=== PATIENT | female | born 1980 | race African-American/Black ===

== ENCOUNTER 2016-06-19 18:48 | Emergency (ER) | payer OTHER ==
[2016-06-19 18:54] VITALS: BP 120/75; BMI 33.6
[2016-06-19] MEDS ORDERED: ADACEL TDaP IM ONE (19:05)
[2016-06-19] MEDS ORDERED: BETADINE SOLN TOP ONE (19:05)
[2016-06-19] MEDS ORDERED: XYLOCAINE 1 % (PLAIN) IM ONE (19:05)
[2016-06-19] MEDS ORDERED: KEFLEX CAP 500 MG PO ONE ×2 (19:48→19:52)
[2016-06-19] MEDS ORDERED: MOTRIN TAB 600 MG PO ONE ×2 (19:49→19:52)
--- NOTE | 2016-06-19 19:52 | DR.LACERAT ---
HPI - Time Seen Time seen: 19:48 - Primary Care Physician Primary Care Physician: jade - HPI Comment HPI Comment: PATIENT CUT HER 5TH FINGER WITH A KNIFE WHEN SHE WAS CUTTING THE MEAT AT HOME. TD NOT UTD. - Complaints Chief Complaint Doctors Comments: LACERATION LT 5TH FINGER. Chief Complaint:: LEFT HAND, 5TH DIGIT LACERATION CUTTING MEAT AT HOME. - Reviewed Nurses Notes Reviewed: Yes - Source History Provided: Patient - Mode of Arrival Mode of Arrival: Ambulatory - Timing Onset of Chief Complaint: 06/19/16 - Context Mechanism: Knife Tetanus Vaccination: No - Severity Pain Severity: Moderate Bleeding:: Controlled - Associated Signs and Symptoms Associated Signs and Symptoms: None PMH - PMH Past Medical History: No Past Surgical History: No - Family History History of Family Medical Conditions: Yes Family Medical History: Diabetes Mellitus, Hypertension - Social History Type of Tobacco Use: None Does any household member use tobacco: No Alcohol Use: None Do you use any recreational Drugs:: No Lives Where: Home - infectious screening Have you traveled outside the country in the last 6 months?: No Isolation: Standard ROS - Review of Systems Constitutional: No Symptoms Reported Eyes: No Symptoms Reported ENTM: No Symptoms Reported Respiratoy: No Symptoms Reported Cardiovascular: No Symptoms Reported Gastrointestinal/Abdominal: No Symptoms Reported Genitourinary: No Symptoms Reported Neurological: No Symptoms Reported Musculoskeletal: Left, Hand Integumentary: Change in Color, Wound (LT 5TH FINGER LACERATION.) Hematologic/Lymphatic: No Symptoms Reported Endocrine: No Symptoms Reported All Other Systems: Reviewed and Negative PE - Vital Signs Vitals: Temperature 99.0 F Pulse Rate 97 Respiratory Rate 18 Blood Pressure 120/75 O2 Sat by Pulse Oximetry 98 - General Limitations: No Limitations General Appearance: Alert - Head Head Exam: Normal Inspection - Eyes Eye exam: Normal Appearance - ENT ENT Exam: Normal External Ear Exam - Neck Neck Exam: Normal Inspection - Chest Chest Inspection: Symmetric Chest Wall Rise - Respiratory Respiratory Exam: Normal Lung Sounds Bilat Respiratory Exam: Bilateral Clear to Auscultation - Cardiovascular Cardiovascular Exam: Regular Rate, Normal Rhythm, Normal Heart Sounds - Abdominal Exam Abdominal Exam: Normal Bowel Sounds, Soft, Tenderness - Extremities Extremities Exam: Tenderness (RIGHT 5TH FINGER) - Back Back Exam: Normal Inspection - Neurologic Neurological Exam: Alert, Oriented X3 - Skin Skin Exam: Erythema Type of Lesion: Laceration (3CM) Distribution: RUE (LT 5TH FINGER) MDM - Differential Diagnosis Differential Diagnosis: Contusion, Laceration Course - Treatment Treatment: SEE ORDERS - Education/Counseling Education/Counseling: Patient, Education Educated On: Treatment, Diagnosis, Needs for Follow Up - Diagnosis Discharge Problem: Laceration Finger contusion Qualifiers: Encounter type: initial encounter Finger: little finger Damage to nail status: with damage Laterality: left Qualified Code(s): S60.152A - Contusion of left little finger with damage to nail, initial encounter - Discharge Plan Disposition: 01 HOME, SELF-CARE Condition: Stable Prescriptions: Cephalexin [Keflex Cap 500 mg] 500 mg PO TID #27 cap Ibuprofen [MOTRIN TAB 600 MG *] 600 mg PO TID PRN #20 tab PRN Reason: Pain/Inflammation - Follow ups/Referrals Follow ups/Referrals: NFD,None [Primary Care Provider] - 3 days - Instructions Instructions: Laceration Care, Adult Additional Instructions: RETURN TO ED IF WORSE. RETURN TO ED IF WORSE.
== END 2016-06-19 20:01 | disposition home or self-care (01) ==
LOC: ER 18:48
PROC: 0XQW0ZZ Repair Left Little Finger, Open Approach (ICD-10-PCS; principal; 2016-06-19)
DX: S60.152A Contusion of left little finger with damage to nail, initial encounter (principal); W26.0XXA Contact with knife, initial encounter; Y92.009 Unspecified place in unspecified non-institutional (private) residence as the place of occurrence of the external cause
CPT/HCPCS: 90471; 99282